=== PATIENT | male | born 1985 | race African-American/Black ===

== ENCOUNTER 2018-05-19 20:59 | Emergency (ER) | payer MEDICAID ==
[~2018-05-19] VITALS: Ht 177.8 cm; Wt 74.8 kg
[2018-05-20] MEDS ORDERED: HYDROCODONE/ACETAMINOPHEN 5/325MG TABLET PO ONE (02:15)
[2018-05-20 04:20] VITALS: BP 109/59
== END 2018-05-20 04:23 | disposition home or self-care (01) ==
LOC: ER 23:04
DX: K08.89 Other specified disorders of teeth and supporting structures (principal); F17.200 Nicotine dependence, unspecified, uncomplicated; F12.10 Cannabis abuse, uncomplicated
CPT/HCPCS: 99283